=== PATIENT | female | born 1950 | race Caucasian/White ===

== ENCOUNTER → 2018-08-01 | Outpatient (CLI) | payer MEDICARE, OTHER ==
[~2018-08-01] MED LIST: ASPIRIN81 M1; INDERAL; LIPITOR; PAMINE; PRILOSEC; REGLAN; SULFASALAZINE; XANAX; XYZAL
--- NOTE | 2018-08-01 16:17 | Diagnostic Imaging Report ---
RIGHT SHOULDER - 2 Images HISTORY: Pain, pops, crackles COMPARISON: None available. FINDINGS: Bones: No acute displaced fracture. No aggressive osseous lesion. Joints: Marginal osteophytosis of the glenohumeral and to a lesser extent the acromial clavicular joint. Soft tissues: The soft tissues appear unremarkable. IMPRESSION: 1. No acute radiographic abnormality. 2. Minimal glenohumeral and acromioclavicular osteoarthrosis. Signed by: Dr. Zion Bermudez D.O., M.M.M. on 08/01/2018 4:14 PM
--- NOTE | 2018-08-01 16:26 | Diagnostic Imaging Report ---
Lumbar Spine Radiographs: 6 views including obliques HISTORY: Low back pain COMPARISON: None available. DISCUSSION: The osseous structures are partially obscured by stool and bowel gas. Five non-rib bearing lumbar vertebral bodies. Minimal left convex curvature. No displaced fracture or compression deformity is identified. Disc Spaces: Minimal to mild multilevel degenerative disc changes, most notably at L3-4. Facets: Multilevel hypertrophic facet arthrosis, most notably severe from L3-4 to L5-S1. Other: Diffuse scattered atherosclerotic vascular calcifications. Metallic clips in the right upper quadrant of the abdomen are compatible with prior cholecystectomy. IMPRESSION: 1. No acute radiographic abnormality. 2. Multilevel degenerative changes, most notably severe hypertrophic facet arthrosis from L3-4 to L5-S1. Signed by: Dr. Zion Bermudez D.O., M.M.M. on 08/01/2018 4:23 PM
== END ==
LOC: RAD 15:06
PROVIDERS: ATTEND Nurse Practitioner Acute Care
DX: M25.511 Pain in right shoulder (principal); M54.5 Low back pain
CPT/HCPCS: 72110

== ENCOUNTER 2023-09-29 16:58 | Emergency (ER) | payer MEDICARE, OTHER ==
[~2023-09-29] VITALS: Ht 162.6 cm; Wt 74.4 kg
[~2023-09-29 16:58] MED LIST changes: +ACETAMINOPHEN 325 MG TAB ONE; +BENTYL10 MG/1 ML IV; +GEMFIBROZIL600 MG PO; +INDERAL XL80 MG PO; +KETOROLAC TROMETHAMINE 60 MG/2 ML VIAL ONE; +LEVOTHYROXINE75 MCG PO; +LIOTHYRONINE SO5 MCG PO; -LIPITOR; +LIPITOR PO; +LYRICA100 MG PO; +OMEPRAZOLE40 MG PO; +ONDANSETRON HCL 4 MG ORAL DISINTEGRATING TAB ONE; +ONDANSETRON ODT4 MG PO; +PERCOCET 10-321 EACH PO; +PHENTERMINE H37.5 M1 PO; -REGLAN; +REGLAN PO; +SERTRALINE HCL100 MG PO; -SULFASALAZINE; +SULFASALAZINE PO; +VALIUM10 MG PO
[2023-09-29 17:19] VITALS: O2SAT 99
[2023-09-29] MEDS ORDERED: KETOROLAC TROMETHAMINE 60 MG/2 ML VIAL ONE (17:51)
[2023-09-29] MEDS ORDERED: ONDANSETRON HCL 4 MG ORAL DISINTEGRATING TAB ONE (17:51)
[2023-09-29] MEDS ORDERED: ACETAMINOPHEN 325 MG TAB ONE (17:51)
[2023-09-29] MEDS: ONDANSETRON HCL 4 MG ORAL DISINTEGRATING TAB PO ONE (17:57)
[2023-09-29] MEDS: KETOROLAC TROMETHAMINE 60 MG/2 ML VIAL IM STA (17:57)
[2023-09-29] MEDS: ACETAMINOPHEN 325 MG TAB PO STA (18:32)
[2023-09-29] MEDS ORDERED: SODIUM CHLORIDE 0.9% 1000ML 1,000 ML IV STA (18:35)
[2023-09-29] MEDS ORDERED: ONDANSETRON ODT4 MG PO (18:51)
== END 2023-09-29 19:14 | disposition home or self-care (01) ==
LOC: ER 17:05
DX: S06.0X0A Concussion without loss of consciousness, initial encounter (principal); R11.2 Nausea with vomiting, unspecified; W18.39XA Other fall on same level, initial encounter; Y92.89 Other specified places as the place of occurrence of the external cause; I10 Essential (primary) hypertension; E11.9 Type 2 diabetes mellitus without complications; E78.5 Hyperlipidemia, unspecified
CPT/HCPCS: 70450; 72125; 99283; J1885; Q0162

== ENCOUNTER 2024-07-23 10:33 | Emergency (ER) | payer MEDICARE, OTHER ==
[~2024-07-23] VITALS: Ht 162.6 cm; Wt 74.4 kg
[~2024-07-23 10:33] MED LIST changes: -ACETAMINOPHEN 325 MG TAB ONE; -KETOROLAC TROMETHAMINE 60 MG/2 ML VIAL ONE; -ONDANSETRON HCL 4 MG ORAL DISINTEGRATING TAB ONE
[2024-07-23 10:46] VITALS: TEMP 98.4
[2024-07-23] MEDS: TRAMADOL HCL 50 MG TAB PO ONE (11:19)
[2024-07-23] MEDS: KETOROLAC TROMETHAMINE 30 MG/ML VIAL IM STA (11:20)
[2024-07-23] MEDS: Morphine 4mg INJECTION 4 MG/ML INJ IM ONE (12:57)
[2024-07-23 13:03] VITALS: PULSE 82; RESP 18; O2SAT 99
[2024-07-23] MEDS ORDERED: NAPROXEN250 MG PO (13:18)
[2024-07-23 13:40] VITALS: TEMP 98.1
== END 2024-07-23 13:41 | disposition home or self-care (01) ==
LOC: ER 10:45
DX: S42.211A Unspecified displaced fracture of surgical neck of right humerus, initial encounter for closed fracture (principal); M25.561 Pain in right knee; W01.0XXA Fall on same level from slipping, tripping and stumbling without subsequent striking against object, initial encounter; Y93.01 Activity, walking, marching and hiking; Y92.89 Other specified places as the place of occurrence of the external cause; I10 Essential (primary) hypertension; E11.9 Type 2 diabetes mellitus without complications; E78.5 Hyperlipidemia, unspecified; Z87.19 Personal history of other diseases of the digestive system
CPT/HCPCS: 73030; 73562; 99283; J1885; J2270